=== PATIENT | male | born 1980 | race Hispanic/Latino ===

== ENCOUNTER 2018-05-08 21:12 | Emergency (ER) | payer SELFPAY ==
[2018-05-08] MEDS ORDERED: METHYLPREDNISOLONE 125 MG INJ ONE (21:48)
[2018-05-08] MEDS ORDERED: LEVALBUTEROL 1.25 MG/3 ML NEB ONE (21:49)
[2018-05-08 22:10] LABS: Absolute Lymphocytes (CBC) 2.3 K/uL (0.7-4.9); Absolute Monocytes 0.7 K/uL (0.1-1.3); Absolute Neutrophil 8.8 K/uL (1.8-8.0); Basophils % 0.5 % (0-1.3); Eosinophils % 4.7 % (0-4.4); Hematocrit 45.7 % (39.6-49.0); Lymphocytes % 18.2 % (15.3-44.8); MCH 29.7 pg (27.0-35.0); MCV 88.1 fL (80-100); Monocytes % 5.7 % (3.3-12.3); RBC Red Blood Cell Count 5.19 M/uL (4.33-5.43)
[2018-05-08 22:32] LABS: BUN Blood Urea Nitrogen 14 mg/dL (7-18); Bicarbonate 27 mmol/L (21-32); Glucose Level 119 mg/dL (74-106); NT PRO-BNP 11 pg/mL (<125); Potassium 3.7 mmol/L (3.5-5.1); Sodium Level 138 mmol/L (136-145); Troponin (Emerg Dept Use Only) < 0.02 ng/mL (0.0-0.045)
--- NOTE | 2018-05-08 23:22 | ER ---
Nurse's Notes [facility] Name: Elvis Nguyễn Age: 37 yrs Sex: Male : 1980 Arrival Date: 05/08/2018 Time: 21:17 Bed 17 [facility] MD: ELAINA MARQUEZ Diagnosis: Wheezing;Atypical Pneumonia Presentation: 05/08 21:26 Presenting complaint: Patient states: Shortness of breath increasing over the last lp1 couple days, cough, congestion; States trouble breathing today, wheezing; Denies fever at home. Transition of care: patient was not received from another setting of care. Onset of symptoms was May 08, 2018. Risk Assessment: Do you want to hurt yourself or someone else? Patient reports no desire to harm self or others. Initial Sepsis Screen: Does the patient meet any 2 criteria? No. Patient's initial sepsis screen is negative. Does the patient have a suspected source of infection? No. Patient's initial sepsis screen is negative. Care prior to arrival: None. 21:26 Method Of Arrival: Ambulatory lp1 21:26 Acuity: DONNA 3 lp1 Triage Assessment: 21:28 General: Appears uncomfortable. Respiratory: Breath sounds with wheezes bilaterally. lp1 Historical: - Allergies: 21:28 No Known Allergies; lp1 - Home Meds: 21:28 Lisinopril Oral [Active]; lp1 - PMHx: 21:28 Hypertension; lp1 - PSHx: 21:28 None; lp1 - Immunization history:: Adult Immunizations up to date. - Social history:: Smoking status: Patient/guardian denies using tobacco. - Ebola Screening: : No symptoms or risks identified at this time. - Family history:: not pertinent. - Hospitalizations: : No recent hospitalization is reported. Screenin:31 Abuse screen: Denies threats or abuse. Nutritional screening: No deficits noted. jd3 Tuberculosis screening: No symptoms or risk factors identified. Fall Risk Ambulatory Aid- None/Bed Rest/Nurse Assist (0 pts). Gait- Normal/Bed Rest/Wheelchair (0 pts) Mental Status- Oriented to own ability (0 pts). Total Lim Fall Scale indicates No Risk (0-24 pts). Assessment: 21:28 General: Appears in no apparent distress. uncomfortable, Behavior is calm, cooperative, jd3 appropriate for age. Pain: Complains of pain in chest. Neuro: Level of Consciousness is awake, alert, obeys commands, Oriented to person, place, time, situation. Cardiovascular: Heart tones S1 S2 present Capillary refill < 3 seconds Patient's skin is warm and dry. Respiratory: Reports shortness of breath at rest Airway is patent Respiratory effort is even, unlabored, Respiratory pattern is regular, symmetrical, Breath sounds with wheezes bilaterally. GI: Abdomen is round Reports nausea, Patient currently denies diarrhea, vomiting. : No signs and/or symptoms were reported regarding the genitourinary system. EENT: No signs and/or symptoms were reported regarding the EENT system. Derm: Skin is intact, Skin is dry, Skin is normal, Skin temperature is warm. Musculoskeletal: Circulation, motion, and sensation intact. Range of motion: intact in all extremities. 22:08 Reassessment: Patient appears in no apparent distress at this time. No changes from jd3 previously documented assessment. Patient and/or family updated on plan of care and expected duration. Pain level reassessed. Patient is alert, oriented x 3, equal unlabored respirations, skin warm/dry/pink. 23:02 Reassessment: Patient appears in no apparent distress at this time. Patient and/or jd3 family updated on plan of care and expected duration. Pain level reassessed. Patient is alert, oriented x 3, equal unlabored respirations, skin warm/dry/pink. Patient states feeling better. 23:38 Reassessment: Patient appears in no apparent distress at this time. Patient and/or jd3 family updated on plan of care and expected duration. Pain level reassessed. Patient is alert, oriented x 3, equal unlabored respirations, skin warm/dry/pink. Patient states feeling better. Vital Signs: 21:28 BP 151 / 97; Pulse 90; Resp 22; Temp 100(O); Pulse Ox 96% on R/A; Weight 92.53 kg; lp1 Height 5 ft. 5 in. (165.10 cm); Pain 0/10; 22:08 BP 139 / 77; Pulse 80; Resp 17 S; Pulse Ox 99% on R/A; jd3 23:03 BP 131 / 76; Pulse 90; Resp 18 S; Pulse Ox 95% on R/A; jd3 21:28 Body Mass Index 33.95 (92.53 kg, 165.10 cm) lp1 ED Course: 21:17 Patient arrived in ED. am2 21:17 ELAINA MARQUEZ is Private Physician. am2 21:24 Vikas Coronel, TESHA is Primary Nurse. jd3 21:27 Branden Sloan MD is Attending Physician. rn 21:27 Triage completed. lp1 21:28 Arm band placed on. lp1 21:32 Patient has correct armband on for positive identification. Bed in low position. Call jd3 light in reach. Side rails up X 1. Adult w/ patient. 21:50 First set of blood cultures drawn by ED staff. ag4 22:04 Inserted saline lock: 20 gauge in right antecubital area, using aseptic technique. ag4 Blood collected. 22:08 XRAY Chest Pa And Lat (2 Views) In Process Unspecified. EDMS 23:36 No provider procedures requiring assistance completed. IV discontinued, intact, jd3 bleeding controlled, No redness/swelling at site. Pressure dressing applied. Administered Medications: 21:47 Drug: Xopenex (3) 1.25 mg Route: Inhalation; jd3 23:03 Follow up: Response: No adverse reaction jd3 21:48 Drug: SOLU-Medrol 125 mg Route: IVP; Site: right antecubital; jd3 23:03 Follow up: Response: No adverse reaction jd3 23:30 Drug: LevaQUIN 750 mg Route: PO; jd3 23:33 Follow up: Response: Medication administered at discharge. jd3 Outcome: 23:21 Discharge ordered by MD. rn 23:37 Discharged to home ambulatory, with family. jd3 23:37 Condition: stable 23:37 Discharge instructions given to patient, family, Instructed on discharge instructions, follow up and referral plans. medication usage, Demonstrated understanding of instructions, follow-up care, medications, Prescriptions given X 3. 23:38 Patient left the ED. jd3 Signatures: Dispatcher [employer] EDMS Branden Sloan MD MD rn Pena, Laura, RN RN lp1 Tasneem Hall am2 Vikas Coronel RN RN jd3 Albert Calderon ag4 Corrections: (The following items were deleted from the chart) 21:31 21:28 Respiratory: Airway is patent Respiratory effort is even, unlabored, Respiratory jd3 pattern is regular, symmetrical, Breath sounds with wheezes bilaterally. jd3
--- NOTE | 2018-05-08 23:22 | EDPHYS ---
Physician Documentation [facility] Name: Elvis Nguyễn Age: 37 yrs Sex: Male : 1980 Arrival Date: 05/08/2018 Time: 21:17 Bed 17 Private MD: ELAINA MARQUEZ ED Physician Branden Sloan HPI: 05/08 22:50 This 37 yrs old Male presents to ER via Ambulatory with complaints of Cough, rn Congestion, Breathing Difficulty. 22:50 The patient or guardian reports cough, difficulty breathing. Onset: The rn symptoms/episode began/occurred 1 week(s) ago. Severity of symptoms: At their worst the symptoms were moderate, in the emergency department the symptoms are unchanged. Modifying factors: The symptoms are alleviated by nothing, the symptoms are aggravated by exertion. The patient has experienced similar episodes in the past. Family reports cough and congestion, + sob for 1 week, seems to happen around this time yearly, never tested for asthma, non-smoker, + wheezing, no cardiac problems. . Historical: - Allergies: 21:28 No Known Allergies; lp1 - Home Meds: 21:28 Lisinopril Oral [Active]; lp1 - PMHx: 21:28 Hypertension; lp1 - PSHx: 21:28 None; lp1 - Immunization history:: Adult Immunizations up to date. - Social history:: Smoking status: Patient/guardian denies using tobacco. - Ebola Screening: : No symptoms or risks identified at this time. - Family history:: not pertinent. - Hospitalizations: : No recent hospitalization is reported. ROS: 22:50 Constitutional: + fever Eyes: Negative for injury, pain, redness, and discharge, Neck: rn Negative for injury, pain, and swelling, Cardiovascular: Negative for chest pain, palpitations, and edema, Respiratory: + cough/wheezing/sob Abdomen/GI: Negative for abdominal pain, nausea, vomiting, diarrhea, and constipation, MS/Extremity: Negative for injury and deformity, Skin: Negative for injury, rash, and discoloration, Neuro: Negative for headache, weakness, numbness, tingling, and seizure. Exam: 22:50 Constitutional: This is a well developed, well nourished patient who is awake, alert, rn and in no acute distress. Head/Face: Normocephalic, atraumatic. Eyes: Pupils equal round and reactive to light, extra-ocular motions intact. Lids and lashes normal. Conjunctiva and sclera are non-icteric and not injected. Cornea within normal limits. Periorbital areas with no swelling, redness, or edema. ENT: no stridor, MMM Neck: Trachea midline, no thyromegaly or masses palpated, and no cervical lymphadenopathy. Supple, full range of motion without nuchal rigidity, or vertebral point tenderness. No Meningismus. Cardiovascular: Regular rate and rhythm with a normal S1 and S2. No gallops, murmurs, or rubs. Normal PMI, no JVD. No pulse deficits. Respiratory: + diffuse exp wheezing, no retractions, equal bilaterally Abdomen/GI: soft, non-tender MS/ Extremity: Pulses equal, no cyanosis. Neurovascular intact. Full, normal range of motion. Equal circumference. Neuro: Awake and alert, GCS 15, oriented to person, place, time, and situation. Cranial nerves II-XII grossly intact. Motor strength 5/5 in all extremities. Sensory grossly intact. Vital Signs: 21:28 BP 151 / 97; Pulse 90; Resp 22; Temp 100(O); Pulse Ox 96% on R/A; Weight 92.53 kg; lp1 Height 5 ft. 5 in. (165.10 cm); Pain 0/10; 22:08 BP 139 / 77; Pulse 80; Resp 17 S; Pulse Ox 99% on R/A; jd3 23:03 BP 131 / 76; Pulse 90; Resp 18 S; Pulse Ox 95% on R/A; jd3 21:28 Body Mass Index 33.95 (92.53 kg, 165.10 cm) lp1 MDM: 21:27 Patient medically screened. rn 23:20 Differential Diagnosis: Bronchitis Influenza Upper Respiratory Infection Viral Syndrome rn Pneumonia. Data reviewed: vital signs, nurses notes, lab test result(s), EKG, radiologic studies, and as a result, I will discharge patient. Counseling: I had a detailed discussion with the patient and/or guardian regarding: the historical points, exam findings, and any diagnostic results supporting the discharge/admit diagnosis, lab results, radiology results, the need for outpatient follow up, to return to the emergency department if symptoms worsen or persist or if there are any questions or concerns that arise at home. Response to treatment: the patient's symptoms have markedly improved after treatment, and as a result, I will discharge patient. Special discussion: I discussed with the patient/guardian in detail that at this point there is no indication for admission to the hospital. It is understood, however, that if the symptoms persist or worsen the patient needs to return immediately for re-evaluation. Based on the history and exam findings, there is no indication for further emergent testing or inpatient evaluation. I discussed with the patient/guardian the need to see the primary care provider for further evaluation of the symptoms. I discussed with the patient/guardian the need to see the dumper bailer operator for further evaluation of the symptoms. 05/08 21:32 Order name: Blood Culture Adult (2) 05/08 21:32 Order name: BMP; Complete Time: 23:16 05/08 21:32 Order name: CBC with Diff; Complete Time: 23:16 05/08 21:32 Order name: D-Dimer; Complete Time: 23:16 05/08 21:32 Order name: NT PRO-BNP; Complete Time: 23:16 17 21:32 Order name: Troponin (emerg Dept Use Only); Complete Time: 23:16 1217 21:32 Order name: XRAY Chest Pa And Lat (2 Views) 05/08 21:32 Order name: EKG; Complete Time: 21:33 17 21:32 Order name: Cardiac monitoring; Complete Time: 21:58 17 21:32 Order name: EKG - Nurse/Tech; Complete Time: 21:58 05/08 21:32 Order name: IV Saline Lock; Complete Time: 21:48 17 21:32 Order name: Labs collected and sent; Complete Time: 21:48 21:32 Order name: O2 Per Protocol; Complete Time: 21:37 17 21:32 Order name: O2 Sat Monitoring; Complete Time: 21:37 rn Administered Medications: 21:47 Drug: Xopenex (3) 1.25 mg Route: Inhalation; jd3 23:03 Follow up: Response: No adverse reaction jd3 21:48 Drug: SOLU-Medrol 125 mg Route: IVP; Site: right antecubital; jd3 23:03 Follow up: Response: No adverse reaction jd3 23:30 Drug: LevaQUIN 750 mg Route: PO; jd3 23:33 Follow up: Response: Medication administered at discharge. jd3 Disposition: 05/08/18 23:21 Discharged to Home. Impression: Wheezing, Atypical Pneumonia. - Condition is Stable. - Discharge Instructions: How to Use an Inhaler, Community-Acquired Pneumonia, Adult. - Prescriptions for Levaquin 500 mg Oral Tablet - take 1 tablet by ORAL route once daily for 10 days; 10 tablet. Prednisone 20 mg Oral Tablet - take 3 tablet by ORAL route once daily for 5 days; 15 tablet. Albuterol Sulfate 90 mcg/actuation - inhale 1-2 puff by INHALATION route every 4-6 hours; 1 Inhaler. - Medication Reconciliation Form, Thank You Letter, Antibiotic Education, Prescription Opioid Use form. - Follow up: Private Physician; When: As needed; Reason: Recheck today's complaints, Re-evaluation by your physician. - Problem is new. - Symptoms have improved. Signatures: Dispatcher [employer] EDMS Branden Sloan MD MD rn Pena, Laura, RN RN lp1 Vikas Coronel RN RN jd3 Corrections: (The following items were deleted from the chart) 23:38 23:21 05/08/2018 23:21 Discharged to Home. Impression: Wheezing; Atypical Pneumonia. jd3 Condition is Stable. Forms are Medication Reconciliation Form, Thank You Letter, Antibiotic Education, Prescription Opioid Use. Follow up: Private Physician; When: As needed; Reason: Recheck today's complaints, Re-evaluation by your physician. Problem is new. Symptoms have improved. rn
[2018-05-08] MEDS ORDERED: levoFLOXacin 750 MG TAB ONE (23:30)
--- NOTE | 2018-05-09 06:00 | EKG ---
Test Date: 2018-05-08 Test Time: 21:53:51 Wellness Specialist: EMANI MEASUREMENT RESULTS: Intervals: Rate: 84 IL: 140 QRSD: 88 QT: 360 QTc: 425 [place]: P: 26 IL: 140 QRS: 69 T: 25 INTERPRETIVE STATEMENTS: Normal sinus rhythm Normal ECG No previous ECG available for comparison Electronically Signed On 05-09-18 05:59:44 INFORMAL WAITER/WAITRESS by Rolf Cano
--- NOTE | 2018-05-09 08:18 | RAD REPORT ---
EXAM DESCRIPTION: RAD - Chest Pa And Lat (2 Views) - 05/08/2018 10:09 pm CLINICAL HISTORY: Cough;Dyspnea Chest pain. COMPARISON: No comparisons FINDINGS: The lungs are clear. The heart is normal in size. No displaced fractures. IMPRESSION: No acute or concerning finding suspected.
== END 2018-05-08 23:38 | disposition home or self-care (01) ==
LOC: ER 21:12
DX: J18.9 Pneumonia, unspecified organism (principal); I10 Essential (primary) hypertension
CPT/HCPCS: 36415; 71046; 80048; 83880; 84484; 85025; 85379; 87040; 93005; 96374; 99284; J2930